=== PATIENT | male | born 1950 | race Asian ===

== ENCOUNTER 2017-09-03 00:48 | Emergency (ER) | payer MEDICARE, MEDICAID ==
[~2017-09-03] VITALS: Ht 167.6 cm; Wt 83.9 kg
[2017-09-03 01:40] VITALS: BP 153/75
[2017-09-03 02:50] VITALS: BP 130/66
--- NOTE | 2017-09-03 03:02 | Emergency Room Report ---
History of Present Illness General Chief Complaint: Dyspnea/Respdistress Source: Patient Present Illness HPI 67-year-old male presents with shortness of breath and dizziness that occurred at home when patient moved from lying/sitting quickly to standing position because he was hungry and "running to the fridge." Is on coreg and losartan for BP control Currently asymptomatic Drove to ER History of "angioplasty" for why he is on coreg Allergies: Coded Allergies: DIDANOSINE (Verified Allergy, Unknown, 09/03/17) EFAVIRENZ (Verified Allergy, Unknown, 09/03/17) NEVIRAPINE (Verified Allergy, Unknown, 09/03/17) Uncoded Allergies: BACTRUM (Allergy, Mild, 09/03/17) Patient History Past Medical History: HTN, CAD, HIV Past Surgical History: none Pertinent Family History: none Social History: Denies: smoking, alcohol use, drug use Immunizations: UTD Reviewed Nursing Documentation: PMH: Agreed, PSxH: Agreed Nursing Documentation-PMH Past Medical History: No History, Except For Hx Hypertension: Yes - HIV Review of Systems All Other Systems: negative except mentioned in HPI Physical Exam Vital Signs Date Time Temp Pulse Resp B/P (MAP) Pulse Ox O2 Delivery O2 Flow Rate FiO2 09/03/17 00:50 98.4 69 18 153/75 99 Room Air 98.4 Sp02 EP Interpretation: reviewed, normal General Appearance: normal inspection, well appearing, no apparent distress, alert, GCS 15, non-toxic, obese Head: normocephalic, atraumatic Eyes: bilateral eye PERRL, bilateral eye EOMI ENT: normal ENT inspection, hearing grossly normal, normal pharynx, no angioedema, normal voice, TMs + canals normal, uvula midline, moist mucus membranes Neck: normal inspection, full range of motion, supple, thyroid normal, no meningismus, no bony tend Respiratory: normal inspection, lungs clear, normal breath sounds, no rhonchi, no respiratory distress, no retraction, no accessory muscle use, no wheezing, speaking full sentences Cardiovascular #1: regular rate, rhythm, no edema, no JVD, normal capillary refill Gastrointestinal: normal inspection, normal bowel sounds, non tender, soft, no mass, no peritonitis, non-distended, no guarding, no hernia, no pulsatile mass Genitourinary: no CVA tenderness Musculoskeletal: normal inspection, back normal, normal range of motion, no calf tenderness, pelvis stable, Emili's Sign negative Neurologic: normal inspection, alert, oriented x3, responsive, fiscal manager III-XII nml as tested, motor strength/tone normal, cerebellar normal, normal gait, speech normal Psychiatric: normal inspection, judgement/insight normal, mood/affect normal, no suicidal/homicidal ideation, no delusions Skin: normal inspection, normal color, no rash Lymphatic: normal inspection, no adenopathy Medical Decision Making Diagnostic Impression: Primary Impression: Dyspnea Qualified Codes: R06.00 - Dyspnea, unspecified Additional Impression: Adverse effects of medication Qualified Codes: T88.7XXA - Unspecified adverse effect of drug or medicament, initial encounter ER Course VSS, afebrile Patient likely experienced adverse effect of coreg when quickly changing position from lying to standing Asymptomatic in ED Ambulated back and forth to bathroom without recurrence of symptoms Advised followup with Battery Stacker to discuss ER course: Patient has remained stable during ED stay. Disposition: Patient is to be discharged to home. Patient is instructed to follow up with their primary care doctor within 5 days. Patient is instructed to follow up with retail business analyst in 1 week Strict return precautions discussed with patient such as fever, chills, worsening/severe pain, nausea, vomiting, which may indicate severe illness. Patient verbalizes understanding and agrees with plan. Please note that this Emergency Department Report was dictated using [employer] and field coach technology software, occasionally this can lead to erroneous entry secondary to interpretation by the dictation equipment EKG Diagnostic Results Rate: normal Rhythm: NSR ST Segments: no acute changes ASA given to the pt in ED: No Rhythm Strip Diag. Results EP Interpretation: yes Rate: 65 Rhythm: NSR, no PVC's, no ectopy Last Vital Signs Date Time Temp Pulse Resp B/P (MAP) Pulse Ox O2 Delivery O2 Flow Rate FiO2 09/03/17 02:50 98.4 82 18 130/66 99 Room Air 98.4 Status: improved Disposition: HOME, SELF-CARE Referrals: ISHAAN KESSLER (PCP) JOSEMANUEL SOUZA M.D. Sep 03, 2017 03:02
[2017-09-03 03:07] VITALS: BP 130/66
--- NOTE | 2017-09-05 16:07 | Cardiology Report ---
APPROVED REPORT EKG Measurement Heart [id number] MI [id number] Normal sinus rhythm Normal ECG
== END 2017-09-03 03:07 | disposition home or self-care (01) ==
LOC: EMR 02:02
DX: R06.00 Dyspnea, unspecified (principal); T50.995A Adverse effect of other drugs, medicaments and biological substances, initial encounter; Y92.9 Unspecified place or not applicable; I10 Essential (primary) hypertension; I25.10 Atherosclerotic heart disease of native coronary artery without angina pectoris; Z88.2 Allergy status to sulfonamides; Z88.8 Allergy status to other drugs, medicaments and biological substances
CPT/HCPCS: 93005; 99283